=== PATIENT | female | born 1965 | race Caucasian/White ===

== ENCOUNTER → 2017-06-24 | Outpatient (CLI) | payer OTHER ==
--- NOTE | 2017-06-24 15:56 | REPMRS ---
Patient History The patient states she had a clinical breast exam in Patient has history of other cancer. No known family history of cancer. Taking hormonal contraceptives for 4 years. Digital Woman Screen Mammo: June 24, 2017 - Exam #: [id number] Bilateral CC and MLO view(s) were taken. Technologist: Suzette Stafford, Technologist Prior study comparison: October 05, 2014, digital woman screen mammo performed at [facility]. March 23, 2013, digital woman screen mammo performed at [facility] to [facility]. FINDINGS: There are scattered fibroglandular densities. There has been no change in the appearance of the mammogram from the prior studies. There is a mild amount of residual fibroglandular tissue which is fairly symmetric. There is no interval development of dominant mass, architectural distortion, or clustered microcalcification suggestive of malignancy. ASSESSMENT: BI-RADS/ACR category 1 mammogram. Negative. Recommendation Routine screening mammogram in 1 year (for women over age 40). This mammogram was interpreted with the aid of an FDA-approved computer-aided dectection system. Electronically Signed By: Nathan Cody MD 06/24/17 [id number]
== END ==
LOC: M WHC 14:46
PROVIDERS: ATTEND Physician Assistant
DX: Z12.31 Encounter for screening mammogram for malignant neoplasm of breast (principal)

== ENCOUNTER → 2017-12-26 | Outpatient (CLI) | payer OTHER ==
[2017-12-26 17:52] LABS: BASO # 0.1 10^3/uL (0.0-0.2); BASO % 0.9 % (0.0-1.0); EOS # 0.2 10^3/uL (0.0-0.50); EOS % 1.9 % (0.0-3.0); HEMATOCRIT 44.9 % (36.0-47.0); HEMOGLOBIN 14.8 g/dl (12.0-15.5); IMMATURE GRANULOCYTE % 1.1 % (0-3.0); LYMPH # 1.6 10^3/uL (1.5-4.5); LYMPH % 17.8 % (24.0-44.0); MEAN CORPUSCULAR HEMOGLOBIN 31.2 pg (27.0-33.0); MEAN CORPUSCULAR VOLUME 94.5 fl (80.0-96.0); MONO # 0.6 10^3/uL (0.0-0.8); MONO % 6.9 % (0.0-5.0); NEUTROPHILS # 6.4 10^3/uL (1.8-7.7); NEUTROPHILS % 71.4 % (36.0-66.0); PLATELET COUNT, AUTOMATED 251 10^3/uL (150-450); RED BLOOD COUNT 4.75 10^6/uL (4.00-5.40); RED CELL DISTRIBUTION WIDTH 13.2 % (11.5-14.5)
[2017-12-26 18:27] LABS: ALBUMIN 3.7 GM/DL (3.2-5.2); ALBUMIN/GLOBULIN RATIO 1.09 (1.00-1.93); ALKALINE PHOSPHATASE 66 U/L (45-117); ALT/SGPT 14 U/L (12-78); AMYLASE 87 U/L (25-115); ANION GAP 7 MEQ/L (8-16); AST/SGOT 13 U/L (7-37); BILIRUBIN,TOTAL 0.5 MG/DL (0.2-1.0); BLOOD UREA NITROGEN 20 MG/DL (7-18); CALCIUM LEVEL 8.8 MG/DL (8.5-10.1); CARBON DIOXIDE LEVEL 28 MEQ/L (21-32); CHLORIDE LEVEL 101 MEQ/L (98-107); CREATININE FOR GFR 1.45 MG/DL (0.55-1.30); GLOMERULAR FILTRATION RATE 40.2 (>51); GLUCOSE, FASTING 58 MG/DL (70-100); LIPASE 226 U/L (73-393); POTASSIUM SERUM 4.6 MEQ/L (3.5-5.1); SODIUM LEVEL 136 MEQ/L (136-145); TOTAL PROTEIN 7.1 GM/DL (6.4-8.2)
== END ==
LOC: M WUC 09:15
DX: R10.11 Right upper quadrant pain (principal)
CPT/HCPCS: 82150

== ENCOUNTER 2018-11-08 08:47 | Day surgery (SDC) | payer OTHER ==
[~2018-11-08] VITALS: Ht 166.4 cm; Wt 82.1 kg
[~2018-11-08 08:47] MED LIST: ACETAMINOPHEN 325 MG TAB PO PRN; BSS with VANC/TOB/EPI for EYE CASES IR ONE; CYCLOPENTOLATE 2% OPHTH SOLN 2ML BTL OD ONE; HEALON DUET PRO(HEALON 10MG/ML 0.55ML & HEALON ENDOCOAT 30MG/ML 0.85ML) As Ordered ONE; HYDR12CA PO; LEVO125T4 PO; LIDOCAINE 1% SDV 5 ML VIAL As Ordered ONE; LIDOCAINE 3.5 % 1ML OPHTH TOPICAL GEL OU ONE; LISI-538 PO; MOXIFLOXACIN IN BSS 0.25MG/0.25ML INTRACAMERAL INJ (OR EYE ONLY)(J2280) As Ordered ONE; OFLOXACIN 0.3 % (OCUFLOX) OPTH SOL 5ML OD ONE; PHENYLEPHRINE 2.5% OPHTH SOL 2ML OD ONE; PHENYLEPHRINE HCL 10 % OPHTH. SOL 5ML OD PRN; POVIDONE-IODINE 5% OPHTH PREP SOL 30ML As Ordered ONE; TRIAMCINOLONE PRES FR 40 MG/ML 1ML(TRIESENCE)(OR EYE ONLY)(J3300 PER 1MG) As Ordered ONE; TROPICAMIDE 1% OPHTH SOLN 2ML OD ONE; VITA500046 PO
[2018-11-08] MEDS ORDERED: fentaNYL 100 MCG/2 ML INJECTION (J3010) As Ordered ONE (11:37)
[2018-11-08] MEDS ORDERED: MIDAZOLAM INJ 2 MG/2 ML VIAL (J2250) As Ordered ONE (11:37)
[2018-11-08] MEDS ORDERED: ACETYLCHOLINE OPHTH SOLN 1% 2ML (MIOCHOL-E) As Ordered ONE (12:05)
[2018-11-08] MEDS ORDERED: AcetaZOLAMIDE 500 MG ER CAP As Ordered ONE (12:35)
[2018-11-08 12:40] VITALS: BP 104/55
[2018-11-08] MEDS ORDERED: TRIMETHOBENZAMIDE 300 MG CAP PO PRN (12:45)
[2018-11-08] MEDS ORDERED: AcetaZOLAMIDE 500 MG ER CAP PO ONE (12:45)
== END 2018-11-08 12:54 | disposition home or self-care (01) ==
LOC: M SDC 08:47
PROVIDERS: ATTEND Ophthalmology
DX: H26.9 Unspecified cataract (principal); I10 Essential (primary) hypertension; E03.9 Hypothyroidism, unspecified; K21.9 Gastro-esophageal reflux disease without esophagitis; Z92.3 Personal history of irradiation; Z85.850 Personal history of malignant neoplasm of thyroid; Z88.0 Allergy status to penicillin; Z79.899 Other long term (current) drug therapy
CPT/HCPCS: 66984; 92015; J2250; J2280; J3010; J3300

== ENCOUNTER 2018-11-28 08:23 | Day surgery (SDC) | payer OTHER ==
[~2018-11-28] VITALS: Ht 165.1 cm; Wt 78.2 kg
[~2018-11-28 08:23] MED LIST changes: -CYCLOPENTOLATE 2% OPHTH SOLN 2ML BTL OD ONE; +CYCLOPENTOLATE 2% OPHTH SOLN 2ML BTL OS ONE; -OFLOXACIN 0.3 % (OCUFLOX) OPTH SOL 5ML OD ONE; +OFLOXACIN 0.3 % (OCUFLOX) OPTH SOL 5ML OS ONE; -PHENYLEPHRINE 2.5% OPHTH SOL 2ML OD ONE; +PHENYLEPHRINE 2.5% OPHTH SOL 2ML OS ONE; -PHENYLEPHRINE HCL 10 % OPHTH. SOL 5ML OD PRN; +PHENYLEPHRINE HCL 10 % OPHTH. SOL 5ML OS PRN; -TROPICAMIDE 1% OPHTH SOLN 2ML OD ONE; +TROPICAMIDE 1% OPHTH SOLN 2ML OS ONE
[2018-11-28] MEDS ORDERED: CYCLOPENTOLATE 2% OPHTH SOLN 2ML BTL As Ordered ONE (08:39)
[2018-11-28] MEDS ORDERED: PHENYLEPHRINE 2.5% OPHTH SOL 2ML As Ordered ONE (08:39)
[2018-11-28] MEDS ORDERED: TROPICAMIDE 1% OPHTH SOLN 2ML As Ordered ONE (08:39)
[2018-11-28] MEDS ORDERED: OFLOXACIN 0.3 % (OCUFLOX) OPTH SOL 5ML As Ordered ONE (08:39)
[2018-11-28] MEDS ORDERED: fentaNYL 100 MCG/2 ML INJECTION (J3010) As Ordered ONE (09:23)
[2018-11-28] MEDS ORDERED: MIDAZOLAM INJ 2 MG/2 ML VIAL (J2250) As Ordered ONE (09:23)
[2018-11-28] MEDS ORDERED: ePHEDrine SULFATE 25 MG/5 ML(5MG/ML) SYRINGE As Ordered ONE (09:48)
[2018-11-28 10:30] VITALS: BP 88/50
[2018-11-28] MEDS ORDERED: AcetaZOLAMIDE 500 MG ER CAP PO ONE (10:30)
[2018-11-28] MEDS ORDERED: TRIMETHOBENZAMIDE 300 MG CAP PO PRN (10:30)
--- NOTE | 2018-11-29 16:08 | RO ---
DATE OF PROCEDURE: 11/28/2018 PREOPERATIVE DIAGNOSIS: Cataract left eye. POSTOPERATIVE DIAGNOSIS: Cataract left eye. PROCEDURE: Phacoemulsification with intraocular lens implantation with the help of Optiwave Refractive Analysis (ORA). SURGEON: Joy Torrez MD SILVERWARE WASHER: None. ANESTHESIA: Local IV standby. FINDINGS: Cataract of left eye. COMPLICATIONS: None. DESCRIPTION OF PROCEDURE: The patient was brought to the operating room and laid in supine position. A lid speculum was placed, and patient was brought under the femtosecond laser. After the satisfactory placement of the patient interface, primary incision, secondary incision, and arcuate incisions with lens fragmentation was done without any complication per plan. The patients interface was then removed and lid speculum removed. Patient was placed under the microscope. The eye was prepped and draped in a sterile fashion for ophthalmic surgery. Lid speculum was placed. The secondary incision was opened, and EndoCoat was injected into the anterior chamber. The temporal clear corneal incision was then opened and capsulorrhexis removed, followed by hydrodissection. This was followed by phacoemulsification of the lens within the capsular bag. Cortical material was then aspirated, and Healon was injected into the capsular bag. Intraocular lens was then placed. Excess Healon was aspirated. Wound was hydrated. The lid speculum was removed, and patient was returned to the recovery room in stable condition. ADDENDUM: Before the intraocular lens was implanted, multiple ORA images were taken and intraocular lens (IOL) power chosen.
== END 2018-11-28 10:40 | disposition home or self-care (01) ==
LOC: M SDC 08:23
PROVIDERS: ATTEND Ophthalmology
DX: H25.9 Unspecified age-related cataract (principal); I10 Essential (primary) hypertension; E03.9 Hypothyroidism, unspecified; K21.9 Gastro-esophageal reflux disease without esophagitis; Z88.0 Allergy status to penicillin; Z79.899 Other long term (current) drug therapy; Z92.3 Personal history of irradiation; Z85.850 Personal history of malignant neoplasm of thyroid
CPT/HCPCS: 66984; 92015; J2250; J2280; J3010; J3300

== ENCOUNTER → 2021-04-07 | Outpatient (CLI) | payer OTHER ==
[~2021-04-07] MED LIST changes: -ACETAMINOPHEN 325 MG TAB PO PRN; -BSS with VANC/TOB/EPI for EYE CASES IR ONE; -CYCLOPENTOLATE 2% OPHTH SOLN 2ML BTL OS ONE; -HEALON DUET PRO(HEALON 10MG/ML 0.55ML & HEALON ENDOCOAT 30MG/ML 0.85ML) As Ordered ONE; -LIDOCAINE 1% SDV 5 ML VIAL As Ordered ONE; -LIDOCAINE 3.5 % 1ML OPHTH TOPICAL GEL OU ONE; -LISI-538 PO; +LISI20TA33 PO; -MOXIFLOXACIN IN BSS 0.25MG/0.25ML INTRACAMERAL INJ (OR EYE ONLY)(J2280) As Ordered ONE; -OFLOXACIN 0.3 % (OCUFLOX) OPTH SOL 5ML OS ONE; -PHENYLEPHRINE 2.5% OPHTH SOL 2ML OS ONE; -PHENYLEPHRINE HCL 10 % OPHTH. SOL 5ML OS PRN; -POVIDONE-IODINE 5% OPHTH PREP SOL 30ML As Ordered ONE; -TRIAMCINOLONE PRES FR 40 MG/ML 1ML(TRIESENCE)(OR EYE ONLY)(J3300 PER 1MG) As Ordered ONE; -TROPICAMIDE 1% OPHTH SOLN 2ML OS ONE
--- NOTE | 2021-04-07 16:20 | REPMRS ---
Patient History The patient states she has not had a clinical breast exam in over a year. Patient has history of other cancer. No known family history of cancer. Took hormonal contraceptives for 4 years. No breast complaints today Patient signed the MRS sheet 1st covid vaccine 09/27/20-left arm-Pfizer 2nd covid vaccine 10/26/20-left arm [employer] on PACS Patient Identification Verified Digital Woman Screen Mammo: April 07, 2021 - Exam #: [id number] Bilateral CC and MLO view(s) were taken. Technologist: Shital Chris, Technologist Prior study comparison: June 24, 2017, digital woman screen mammo performed at [facility]. October 05, 2014, digital woman screen mammo performed at [facility]. FINDINGS: There are scattered fibroglandular densities. Screening. Digital screening (2D) mammography was performed bilaterally in the CC and MLO projections. Additionally, breast tomosynthesis (3D mammography) was performed bilaterally in the CC and MLO projections. Todays exam was compared to the prior exam/exams. By history, the patient has no complaints of a palpable breast abnormality or other significant breast complaints. The breasts are unchanged in size and shape. There are no luis carlos-soft tissue densities or spiculated masses. There is no internal architectural distortion. There are no suspicious luis carlos-calcific clusters. Skin thickening or nipple retraction is not present. IMPRESSION: BI-RADS Category 2- Benign Findings. There is no evidence of malignant alteration of the breasts. Followup examination recommended in one year. The Volpara volumetric breast density category is B, there are scattered areas of fibroglandular densities. This mammogram was read with the assistance of [facility],an FDA approved computer aided detection system for mammography. The lifetime Tyrer-Cuzick score is 7.8 % Negative x-ray reports should not delay surgical consultation if a dominant or clinically suspicious mass is present. Not all breast cancers can be identified by mammography. Therefore, we recommend that you continue to perform regular breast self-examination and physical examination and then promptly contact your physician of any concerns or changes. Adenosis and dense breasts may obscure an underlying neoplasm. Assessment: BI-RADS/ACR category 2 mammogram. Benign Findings. Recommendation Routine screening mammogram of both breasts in 1 year. Electronically Signed By: Josh Vogel DO 04/07/21 1026
== END ==
LOC: M WHC 14:52
PROVIDERS: ATTEND Family Medicine
DX: Z12.31 Encounter for screening mammogram for malignant neoplasm of breast (principal)

== ENCOUNTER → 2022-04-07 | Outpatient (CLI) | payer OTHER ==
[~2022-04-07] MED LIST changes: +ISOVUE-370 76% 100ML VIAL As Ordered ONE
== END ==
LOC: M RAD 15:57
PROVIDERS: ATTEND Internal Medicine Nephrology
DX: R31.9 Hematuria, unspecified (principal); N18.31 Chronic kidney disease, stage 3a; K80.20 Calculus of gallbladder without cholecystitis without obstruction
CPT/HCPCS: 74178; Q9967

== ENCOUNTER → 2022-04-29 | Outpatient (CLI) | payer OTHER ==
[~2022-04-29] MED LIST changes: -ISOVUE-370 76% 100ML VIAL As Ordered ONE
== END ==
LOC: M WHC 13:33
PROVIDERS: ATTEND Family Medicine
DX: Z12.31 Encounter for screening mammogram for malignant neoplasm of breast (principal)

== ENCOUNTER → 2023-10-20 | Outpatient (CLI) | payer OTHER | LOC: M PLAIMG 15:07 | PROVIDERS: ATTEND Family Medicine | DX: R01.1 Cardiac murmur, unspecified (principal) ==

== ENCOUNTER → 2025-03-20 | Outpatient (CLI) | payer OTHER | LOC: M WHC 14:03 | PROVIDERS: ATTEND Internal Medicine | DX: M85.89 Other specified disorders of bone density and structure, multiple sites (principal); M81.0 Age-related osteoporosis without current pathological fracture ==